=== PATIENT | female | born 1995 | race American Indian/Alaskan Native ===

== ENCOUNTER 2019-06-12 15:57 | Emergency (ER) | payer SELFPAY ==
[2019-06-12 16:39] VITALS: BP 119/73
--- NOTE | 2019-06-12 16:42 | Emergency Department Report ---
ED Rash HPI - HPI Chief Complaint: Skin Rash Stated Complaint: ECZEMA FLARE UP Time Seen by Provider: 06/12/19 16:37 Duration: 3 Days Location: Neck, Abdomen, Upper Extremities Rash Symptoms: Yes Itching, No Facial Swelling, No Tongue/Oral Swelling, No Breathing Difficulties, No Choking Sensation, No Wheezing/Dyspnea, No Peeling, No Blistering, No Fever, No Lightheaded, No Malaise, No Myalgias Severity: moderate Other History: This is a 24-year-old female that presents to the ER with pruritic rash to neck, abdomen, and bilateral upper extremities for 2-3 days. Past medical history of eczema. Patient states she ran out of triamcinolone cream. Denies fever, chills, dyspnea, swelling, pus, or drainage. ED Review of Systems ROS: Stated complaint: ECZEMA FLARE UP Other details as noted in HPI Constitutional: denies: chills, fever Respiratory: denies: cough, shortness of breath, wheezing Cardiovascular: denies: chest pain, palpitations Gastrointestinal: denies: abdominal pain, nausea, diarrhea Skin: rash, pruritus. denies: lesions, change in color, change in hair/nails Neurological: denies: headache, weakness, paresthesias Psychiatric: denies: anxiety, depression ED Past Medical Hx - Past Medical History Previous Medical History?: No - Surgical History Past Surgical History?: No - Medications Home Medications: Home Medications Medication Instructions Recorded Confirmed Last Taken Type Prednisone [predniSONE 10 mg 10 mg PO .TAPER #1 tab.ds.pk 06/12/19 Unknown Rx (6-Day Pack, 21 Tabs)] Triamcinolone Acetonide 60 gm TP BID #1 oint...g. 06/12/19 Unknown Rx [Triamcinolone Acetonide Oint 0.5%] Rash Exam - Exam General: Vital signs noted. No distress. Alert and acting appropriately. HEENT: No Periorbital Edema, No Conjuctival Injection, No Chemosis, No Perioral Edema, No Tongue Edema, No Uvular Edema, No Compromised Airway, No Drooling Lungs: Yes Good Air Exchange (Normal Breath Sounds), No Wheezes, No Ronchi, No Stridor, No Cough, No Labored Respirations, No Retractions, No Use of Accessory Muscles, No Other Abnormal Lung Sounds Heart: Yes Regular, No Murmur Skin: Yes Encrustations (to lumbar sacral, posterior neck, and extensor bilateral arms), No Urticarial Rash, No Maculopapular Rash, No Morbilliform rash, No Bulla(e), No Excoriations, No Weeping, No Tenderness, No Erythema, No Edema Other: Positive: Abdomen Normal, Musculoskeletal Normal ED Medical Decision Making - Medical Decision Making This is a 24-year-old -[place] female who presents with eczema flare. Patient was examined by me. Encrustations to lumbar sacral, posterior neck, and extensor bilateral arms that appear to be atopic dermatitis. Vitals are stable and in no acute distress. No labs ordered. Start medrol and triamcinolone cream. Discharged home in stable condition. Discussed prevention options. F/U with PCP. Critical care attestation.: If time is entered above; I have spent that time in minutes in the direct care of this critically ill patient, excluding procedure time. ED Disposition Clinical Impression: Pruritic rash Atopic dermatitis Qualifiers: Atopic dermatitis type: flexural Qualified Code(s): L20.89 - Other atopic dermatitis Disposition: DC- TO HOME OR SELFCARE Is pt being admited?: No Condition: Stable Instructions: Eczema (ED) Additional Instructions: Follow up with dermatology. Prescriptions: Prednisone [predniSONE 10 mg (6-Day Pack, 21 Tabs)] 10 mg PO .TAPER #1 tab.ds.pk Triamcinolone Acetonide [Triamcinolone Acetonide Oint 0.5%] 60 gm TP BID #1 oint...g. Referrals: [facility] [Provider Group] - 3-5 Days [facility] [Provider Group] - 3-5 Days [facility] [Outside] - 3-5 Days Forms: Work/School Release Form(ED) Time of Disposition: 16:41
== END 2019-06-12 17:58 | disposition home or self-care (01) ==
LOC: ED 15:57
DX: L20.89 Other atopic dermatitis (principal)
CPT/HCPCS: 99281

== ENCOUNTER 2020-01-21 19:56 | Emergency (ER) | payer SELFPAY ==
[2020-01-21 20:10] VITALS: BP 101/76
--- NOTE | 2020-01-21 20:36 | Emergency Department Report ---
Chief Complaint: Sore Throat Stated Complaint: UPPER BODY PAIN/SORETHROAT - HPI History of Present Illness: 24 y/o female comes in for sore throat and bodyaches times 2 days. No fever or chills. No nausea vomiting or diarrhea. LMP 01/14/20. - Exam Vital Signs: Vital Signs 01/21/20 20:08 Temperature 98.5 F Pulse Rate 94 H Respiratory 18 Rate Blood Pressure 101/76 O2 Sat by Pulse 100 Oximetry Physical Exam: AX3 no acute distress nontoxic in appearance Oromucosa is moist no tonsillar hypertrophy no exudate MSE screening note: Focused history and physical exam performed. Due to findings the following was ordered: 24 y/o female comes in for sore throat and bodyaches times 2 days. No fever or chills. No nausea vomiting or diarrhea. LMP 01/14/20. ED Disposition for MSE Disposition: Z MED SCREENING EXAM-LEFT Is pt being admited?: No Does the pt Need Aspirin: No Condition: Stable Additional Instructions: Take ibuprofen or Tylenol for pain management follow-up with your primary care provider Referrals: CANDICE GILLIAM MD [Staff Physician] - 3-5 Days [facility] [Provider Group] - 3-5 Days Forms: Work/School Release Form(ED)
== END 2020-01-21 20:55 | disposition left against medical advice (07) ==
LOC: ED 19:56
DX: J02.9 Acute pharyngitis, unspecified (principal); Z53.21 Procedure and treatment not carried out due to patient leaving prior to being seen by health care provider

== ENCOUNTER 2021-07-22 17:14 | Emergency (ER) | payer SELFPAY ==
[2021-07-22 20:42] VITALS: BP 122/76
--- NOTE | 2021-07-22 23:32 | Emergency Department Report ---
- General Chief Complaint: Headache Stated Complaint: BODYACHES/HEADACHE Source: patient Mode of arrival: Ambulatory Limitations: No Limitations - History of Present Illness Initial Comments: Patient is a 26-year-old -[place] female with a history of eczema who presented to the ED with nasal and sinus congestion, frontal sinus pressure and headache, persistent dry cough with diffuse body aches and pains for the last 3 days. Patient states that she has been taking [id number] medications with no relief. Patient denies dizziness, syncope, nausea and vomiting, diarrhea, dysuria, urinary frequency and urgency, abdominal pain, chest pain, shortness of breath, change in vision, sore throat or hearing loss. MD Complaint: cough, rhinorrhea, nasal congestion, sinus pain -: Sudden, days(s) (3) Severity: severe Severity scale (0 -10): 7 Quality: sharp, aching Consistency: constant Improves With: nothing Worsens With: nothing Context: sick contacts Associated Symptoms: denies other symptoms, myalgias, headache, rhinorrhea, nasal congestion, cough. denies: fever, chills, diaphoresis, sore throat, stiff neck, chest pain, shortness of breath, abdominal pain, nausea, vomiting, diarrhea, rash, confusion, right sweats, weight loss, epistaxis, hoarseness, ear pain Treatments Prior to Arrival: "cold medicine" - Related Data Previous Rx's Medication Instructions Recorded Last Taken Type Triamcinolone Acetonide 60 gm TP BID #1 oint...g. 06/12/19 Unknown Rx [Triamcinolone Acetonide Oint 0.5%] Azithromycin [Zithromax Z-MALLORY] 250 mg PO DAILY #6 tablet 07/22/21 Unknown Rx Brompheniramine/Pseudoephed/Dm 5 ml PO Q6H #118 ml 07/22/21 Unknown Rx [Bromfed Dm Cough Syrup] Cetirizine HCl [Zyrtec 10mg tab] 10 mg PO DAILY #30 tablet 07/22/21 Unknown Rx Ibuprofen [Motrin] 600 mg PO Q8H PRN #24 tablet 07/22/21 Unknown Rx Prednisone [predniSONE 10 mg 10 mg PO .TAPER #1 tab.ds.pk 07/22/21 Unknown Rx (6-Day Pack, 21 Tabs)] Allergies Allergy/AdvReac Type Severity Reaction Status Date / Time shellfish derived AdvReac Unknown Verified 07/22/21 20:41 ED Review of Systems ROS: Stated complaint: BODYACHES/HEADACHE Other details as noted in HPI Constitutional: denies: chills, fever Eyes: denies: eye pain, eye discharge, vision change ENT: congestion, other (Frontal sinus pressure and headache). denies: ear pain, throat pain Respiratory: cough. denies: shortness of breath, wheezing Cardiovascular: denies: chest pain, palpitations Endocrine: no symptoms reported Gastrointestinal: denies: abdominal pain, nausea, vomiting, diarrhea Genitourinary: denies: urgency, dysuria, discharge Musculoskeletal: denies: back pain, joint swelling, arthralgia Skin: denies: rash, lesions Neurological: headache. denies: weakness, paresthesias Psychiatric: denies: anxiety, depression Hematological/Lymphatic: denies: easy bleeding, easy bruising ED Past Medical Hx - Past Medical History Previous Medical History?: No Additional medical history: Eczema - Surgical History Past Surgical History?: No - Social History Smoking Status: Never Smoker Substance Use Type: None - Medications Home Medications: Home Medications Medication Instructions Recorded Confirmed Last Taken Type Triamcinolone Acetonide 60 gm TP BID #1 oint...g. 06/12/19 Unknown Rx [Triamcinolone Acetonide Oint 0.5%] Azithromycin [Zithromax Z-MALLORY] 250 mg PO DAILY #6 tablet 07/22/21 Unknown Rx Brompheniramine/Pseudoephed/Dm 5 ml PO Q6H #118 ml 07/22/21 Unknown Rx [Bromfed Dm Cough Syrup] Cetirizine HCl [Zyrtec 10mg tab] 10 mg PO DAILY #30 tablet 07/22/21 Unknown Rx Ibuprofen [Motrin] 600 mg PO Q8H PRN #24 tablet 07/22/21 Unknown Rx Prednisone [predniSONE 10 mg 10 mg PO .TAPER #1 tab.ds.pk 07/22/21 Unknown Rx (6-Day Pack, 21 Tabs)] ED Physical Exam - General Limitations: No Limitations General appearance: alert, in no apparent distress - Head Head exam: Present: atraumatic, normocephalic, normal inspection - Eye Eye exam: Present: normal appearance, PERRL, EOMI Pupils: Present: normal accommodation - ENT ENT exam: Present: normal orophraynx, mucous membranes moist, TM's normal bilaterally, normal external ear exam, other (Grossly congested nasal passages; palpable frontal sinus tenderness) - Neck Neck exam: Present: normal inspection, full ROM - Respiratory Respiratory exam: Present: normal lung sounds bilaterally. Absent: respiratory distress, wheezes, rales, rhonchi, chest wall tenderness, accessory muscle use, decreased breath sounds, other - Cardiovascular Cardiovascular Exam: Present: regular rate, normal rhythm, normal heart sounds. Absent: systolic murmur, diastolic murmur, rubs, gallop - GI/Abdominal GI/Abdominal exam: Present: soft, normal bowel sounds. Absent: tenderness, guarding, rebound, hyperactive bowel sounds, hypoactive bowel sounds, organomegaly, mass - Extremities Exam Extremities exam: Present: normal inspection, full ROM, normal capillary refill - Back Exam Back exam: Present: normal inspection, full ROM. Absent: tenderness, CVA tenderness (R), CVA tenderness (L), muscle spasm, paraspinal tenderness, vertebral tenderness - Neurological Exam Neurological exam: Present: alert, oriented X3, CN II-XII intact, normal gait, reflexes normal - Psychiatric Psychiatric exam: Present: normal affect, normal mood - Skin Skin exam: Present: warm, dry, intact, normal color. Absent: rash ED Course Vital Signs 07/22/21 20:41 Temperature 99.2 F Pulse Rate 95 H Respiratory 17 Rate Blood Pressure 122/76 O2 Sat by Pulse 100 Oximetry ED Medical Decision Making - Medical Decision Making This is a 26-year-old -[place] female with a history of eczema who presented to the ED with nasal and sinus congestion, frontal sinus pressure and headache, persistent dry cough with diffuse body aches and pains for the last 3 days. Patient states that she has been taking [id number] medications with no relief. In the ED, patient is alert and oriented x3 and is not in any distress. Based on the history and physical exam findings, patient was discharged home on medications and advised to follow-up with her primary care physician in 5 to 7 days for reevaluation. Patient was advised to return to the ED immediately if symptoms get worse. - Differential Diagnosis Sinusitis; URI; bronchitis; influenza; Critical care attestation.: If time is entered above; I have spent that time in minutes in the direct care of this critically ill patient, excluding procedure time. ED Disposition Clinical Impression: Acute upper respiratory infection, Acute bacterial sinusitis Acute bronchitis Qualifiers: Bronchitis organism: other organism Qualified Code(s): J20.8 - Acute bronchitis due to other specified organisms Disposition: HOME / SELF CARE / HOMELESS Is pt being admited?: No Does the pt Need Aspirin: No Condition: Stable Instructions: Acute Bronchitis (ED), Sinusitis, Adult, [id number], Upper Respiratory Infection, Adult, [id number]-zb-Gief, Acute Bronchitis, Adult, Pfsv-ja-Whab Additional Instructions: Take medication with food, drink plenty of fluids and follow-up with your primary care physician in 7 to 10 days for reevaluation. Return to the ED immediately if symptoms get worse. Prescriptions: Brompheniramine/Pseudoephed/Dm [Bromfed Dm Cough Syrup] 5 ml PO Q6H #118 ml Ibuprofen [Motrin] 600 mg PO Q8H PRN #24 tablet PRN Reason: Pain Prednisone [predniSONE 10 mg (6-Day Pack, 21 Tabs)] 10 mg PO .TAPER #1 tab.ds.pk Azithromycin [Zithromax Z-MALLORY] 250 mg PO DAILY #6 tablet Cetirizine HCl [Zyrtec 10mg tab] 10 mg PO DAILY #30 tablet Referrals: [facility] [Provider Group] - 7-10 days Forms: Work/School Release Form(ED) Time of Disposition: 23:32 Print Language: INDONESIAN
== END 2021-07-23 00:30 | disposition home or self-care (01) ==
LOC: ED 17:14
DX: J06.9 Acute upper respiratory infection, unspecified (principal); J01.90 Acute sinusitis, unspecified; J20.9 Acute bronchitis, unspecified; Z91.013 Allergy to seafood
CPT/HCPCS: 99282

== ENCOUNTER 2022-03-23 23:35 | Emergency (ER) | payer MEDICAID ==
[2022-03-24 03:47] LABS: Blood Urea Nitrogen 11 mg/dL (7-17); Calcium 9.1 mg/dL (8.4-10.2); Hemolysis Index 3
[2022-03-24 03:48] LABS: BUN/Creatinine Ratio 22
--- NOTE | 2022-03-24 10:14 | Emergency Department Report ---
ED General Adult HPI - General Chief complaint: Vaginal Bleeding Stated complaint: BLEEDING FROM MEDICAL ABORATION Time Seen by Provider: 03/24/22 10:07 Source: patient Mode of arrival: Ambulatory Limitations: No Limitations - History of Present Illness Initial comments: 27-year-old female no significant past medical history reports to the ER with vaginal bleeding and passing of clots greater than half dollar size since yesterday afternoon. Patient does report that she had a medical on January 24 and was informed that she will have irregular periods. Patient denies any abdominal pain, no nausea, no vomiting, no diarrhea, no weakness, no he adaches, no dizziness. Patient reports that her bleeding has slowed up and she has since not passed any clots since she checked them last night in the ER.. Patient denies any shortness of breath and no chest pain at this time. No other acute symptoms reported. - Related Data Previous Rx's Medication Instructions Recorded Last Taken Type Triamcinolone Acetonide 60 gm TP BID #1 oint...g. 06/12/19 Unknown Rx [Triamcinolone Acetonide Oint 0.5%] Azithromycin [Zithromax Z-MALLORY] 250 mg PO DAILY #6 tablet 07/22/21 Unknown Rx Brompheniramine/Pseudoephed/Dm 5 ml PO Q6H #118 ml 07/22/21 Unknown Rx [Bromfed Dm Cough Syrup] Cetirizine HCl [Zyrtec 10mg tab] 10 mg PO DAILY #30 tablet 07/22/21 Unknown Rx Ibuprofen [Motrin] 600 mg PO Q8H PRN #24 tablet 07/22/21 Unknown Rx Prednisone [predniSONE 10 mg 10 mg PO .TAPER #1 tab.ds.pk 07/22/21 Unknown Rx (6-Day Pack, 21 Tabs)] Allergies Allergy/AdvReac Type Severity Reaction Status Date / Time shellfish derived AdvReac Unknown Verified 07/22/21 20:41 ED Review of Systems ROS: Stated complaint: BLEEDING FROM MEDICAL ABORATION Other details as noted in HPI Comment: All other systems reviewed and negative Genitourinary: other (Vaginal bleeding) ED Past Medical Hx - Past Medical History Previous Medical History?: Yes Additional medical history: Eczema - Surgical History Past Surgical History?: No - Social History Smoking Status: Never Smoker Substance Use Type: None - Medications Home Medications: Home Medications Medication Instructions Recorded Confirmed Last Taken Type Triamcinolone Acetonide 60 gm TP BID #1 oint...g. 06/12/19 Unknown Rx [Triamcinolone Acetonide Oint 0.5%] Azithromycin [Zithromax Z-MALLORY] 250 mg PO DAILY #6 tablet 07/22/21 Unknown Rx Brompheniramine/Pseudoephed/Dm 5 ml PO Q6H #118 ml 07/22/21 Unknown Rx [Bromfed Dm Cough Syrup] Cetirizine HCl [Zyrtec 10mg tab] 10 mg PO DAILY #30 tablet 07/22/21 Unknown Rx Ibuprofen [Motrin] 600 mg PO Q8H PRN #24 tablet 07/22/21 Unknown Rx Prednisone [predniSONE 10 mg 10 mg PO .TAPER #1 tab.ds.pk 07/22/21 Unknown Rx (6-Day Pack, 21 Tabs)] ED Physical Exam - General Limitations: No Limitations General appearance: alert, in no apparent distress - Head Head exam: Present: atraumatic, normocephalic - Eye Eye exam: Present: normal appearance - ENT ENT exam: Present: mucous membranes moist - Neck Neck exam: Present: normal inspection - Respiratory Respiratory exam: Present: normal lung sounds bilaterally. Absent: respiratory distress - Cardiovascular Cardiovascular Exam: Present: regular rate, normal rhythm. Absent: systolic murmur, diastolic murmur, rubs, gallop - GI/Abdominal GI/Abdominal exam: Present: soft, normal bowel sounds. Absent: distended, tenderness, guarding, rebound, rigid - Extremities Exam Extremities exam: Present: normal inspection - Back Exam Back exam: Present: normal inspection - Neurological Exam Neurological exam: Present: alert, oriented X3 - Psychiatric Psychiatric exam: Present: normal affect, normal mood - Skin Skin exam: Present: warm, dry, intact, normal color. Absent: rash ED Course Vital Signs 03/23/22 03/24/22 03/24/22 23:58 04:43 11:56 Temperature 98.1 F Pulse Rate 83 81 87 Respiratory 18 18 16 Rate Blood Pressure 122/72 Blood Pressure 120/87 114/70 [Right] O2 Sat by Pulse 100 100 100 Oximetry ED Medical Decision Making - Lab Data Result diagrams: 03/24/22 09:20 03/24/22 02:56 - Radiology Data Radiology results: report reviewed [facility] [address] [place] [address] Ultrasound Report Signed Patient: DANG PEREZ MR#: [id number] 9 : 1995 Acct:[id number] Age/Sex: 27 / F ADM Date: 03/23/22 Loc: ED Attending Dr: Ordering Physician: IMMANUEL CASANOVA NP Date of Service: 03/24/22 Procedure(s): US pelvic complete Accession Number(s): [id number] cc: IMMANUEL CASANOVA NP ULTRASOUND PELVIS INDICATION: vaginal exam. Pelvic pain. TECHNIQUE: Transabdominal and Transvaginal. Duplex Color Doppler used: Yes. COMPARISON: None available FINDINGS: Uterus: Present. Size: 8.2 x 4.7 x 6.5 cm. Endometrial complex: Abnormal and heterogeneous measuring 1.8 cm. Vascularity is increased. Mass lesions: None. Additional findings: None. Right Ovary -- Normal. Blood flow: Normal. Cyst or mass: None. Left Ovary-- Normal. Blood flow: Normal. Cyst or mass: None. Urinary Bladder: Normal. Free Fluid: None. Additional Findings: None. IMPRESSION: Abnormally thickened and heterogeneous endometrial complex with increased vascularity. Signer Name: Rajeev French MD Signed: 03/24/2022 10:55 AM Workstation Name: [id number] Transcribed By: ES Dictated By: Rajeev French MD Electronically Authenticated By: Rajeev French MD Signed Date/Time: 03/24/22 105 DD/ 105 TD/TT - Medical Decision Making 27-year-old female no significant past medical history reports to the ER with va ginal bleeding and passing of clots greater than half dollar size since yesterday afternoon. Patient does report that she had a medical on January 24 and was informed that she will have irregular periods. Patient denies any abdominal pain, no nausea, no vomiting, no diarrhea, no weakness, no headaches, no dizziness. Patient reports that her bleeding has slowed up and she has since not passed any clots since she checked them last night in the ER.. Patient denies any shortness of breath and no chest pain at this time. No other acute symptoms reported. Labs unremarkable. UA negative for any acute infection. Ultrasound transverse and pelvic IMPRESSION: Abnormally thickened and he terogeneous endometrial complex with increased vascularity. Patient still reports no vaginal bleeding or passing of clots while in ER. Patient stable for discharge home patient to follow-up outpatient resources with primary care as well as [facility] [employer] services. Patient agrees with plan of care and verbalized understanding. Patient informed if symptoms are to get worse to report back to the ER. Vital Signs 03/23/22 03/24/22 03/24/22 23:58 04:43 11:56 Temperature 98.1 F Pulse Rate 83 81 87 Respiratory 18 18 16 Rate Blood Pressure 122/72 Blood Pressure 120/87 114/70 [Right] O2 Sat by Pulse 100 100 100 Oximetry Lab Results 03/24/22 03/24/22 03/24/22 Range/Units 02:56 02:56 09:20 WBC 6.6 (4.5-11.0) K/mm3 RBC 3.87 (3.65-5.03) M/mm3 Hgb 12.6 (10.1-14.3) gm/dl Hct 36.0 (30.3-42.9) % MCV 93 (79-97) fl MCH 32 (28-32) pg MCHC 35 H (30-34) % RDW 12.5 L (13.2-15.2) % Plt Count 269 (140-440) K/mm3 Lymph % (Auto) 38.0 H (13.4-35.0) % Russell % (Auto) 7.0 (0.0-7.3) % Eos % (Auto) 4.3 (0.0-4.3) % Baso % (Auto) 1.1 (0.0-1.8) % Lymph # (Auto) 2.5 (1.2-5.4) K/mm3 Russell # (Auto) 0.5 (0.0-0.8) K/mm3 Eos # (Auto) 0.3 (0.0-0.4) K/mm3 Baso # (Auto) 0.1 (0.0-0.1) K/mm3 Seg Neutrophils % 49.6 (40.0-70.0) % Seg Neutrophils # 3.3 (1.8-7.7) K/mm3 Sodium 139 (137-145) mmol/L Potassium 4.1 (3.6-5.0) mmol/L Chloride 104.0 (98-107) mmol/L Carbon Dioxide 27 (22-30) mmol/L Anion Gap 12 mmol/L BUN 11 (7-17) mg/dL Creatinine 0.5 L (0.6-1.2) mg/dL Estimated GFR > 60 ml/min BUN/Creatinine Ratio 22 % Glucose 96 (65-100) mg/dL Calcium 9.1 (8.4-10.2) mg/dL HCG, Quant 7.97 H (0-4) mIU/mL Urine Color (Yellow) Urine Turbidity (Clear) Specific [place] (Man) (1.003-1.030) Ur Protein (Man) (Negative) mg/dL Ur Ketones (Man) (Negative) Ur Nitrite (Man) (Negative) Ur Reducing Substances Urine Bilirubin (Man) (Negative) Urine Ictotest Leukocyte Esterase (Man) (Negative) Urine WBC (Auto) (0.0-6.0) /HPF Urine RBC (Auto) (0.0-6.0) /HPF U Epithel Cells (Auto) (0-13.0) /HPF Urine Bacteria (Auto) (Negative) /HPF Urine RBC (Manual) (Negative) Urine Mucus /HPF 03/24/22 Range/Units 10:54 WBC (4.5-11.0) K/mm3 RBC (3.65-5.03) M/mm3 Hgb (10.1-14.3) gm/dl Hct (30.3-42.9) % MCV (79-97) fl MCH (28-32) pg MCHC (30-34) % RDW (13.2-15.2) % Plt Count (140-440) K/mm3 Lymph % (Auto) (13.4-35.0) % Russell % (Auto) (0.0-7.3) % Eos % (Auto) (0.0-4.3) % Baso % (Auto) (0.0-1.8) % Lymph # (Auto) (1.2-5.4) K/mm3 Russell # (Auto) (0.0-0.8) K/mm3 Eos # (Auto) (0.0-0.4) K/mm3 Baso # (Auto) (0.0-0.1) K/mm3 Seg Neutrophils % (40.0-70.0) % Seg Neutrophils # (1.8-7.7) K/mm3 Sodium (137-145) mmol/L Potassium (3.6-5.0) mmol/L Chloride (98-107) mmol/L Carbon Dioxide (22-30) mmol/L Anion Gap mmol/L BUN (7-17) mg/dL Creatinine (0.6-1.2) mg/dL Estimated GFR ml/min BUN/Creatinine Ratio % Glucose (65-100) mg/dL Calcium (8.4-10.2) mg/dL HCG, Quant (0-4) mIU/mL Urine Color Straw (Yellow) Urine Turbidity Clear (Clear) Specific [place] (Man) 1.015 (1.003-1.030) Ur Protein (Man) 1+ (Negative) mg/dL Ur Ketones (Man) Negative (Negative) Ur Nitrite (Man) Negative (Negative) Ur Reducing Substances Not Reportable Urine Bilirubin (Man) Negative (Negative) Urine Ictotest Not Reportable Leukocyte Esterase (Man) Negative (Negative) Urine WBC (Auto) 2.0 (0.0-6.0) /HPF Urine RBC (Auto) 1.0 (0.0-6.0) /HPF U Epithel Cells (Auto) 4.0 (0-13.0) /HPF Urine Bacteria (Auto) 1+ (Negative) /HPF Urine RBC (Manual) 3+ (Negative) Urine Mucus Few /HPF Critical care attestation.: If time is entered above; I have spent that time in minutes in the direct care of this critically ill patient, excluding procedure time. ED Disposition Clinical Impression: Vaginal bleeding Disposition: 01 HOME / SELF CARE / HOMELESS Is pt being admited?: No Condition: Stable Instructions: Abnormal Uterine Bleeding Referrals: CANDICE GILLIAM MD [Primary Care Provider] - 3-5 Days [facility] [Outside] - 3-5 Days [facility] [Outside] - 3-5 Days [facility] [Outside] - 3-5 Days FESTUS NG MD [Staff Physician] - 3-5 Days JOLEEN CARUSO MD [Staff Physician] - 3-5 Days
[2022-03-24 10:15] LABS: Basophils # (Auto) 0.1 K/mm3 (0.0-0.1); Basophils % (Auto) 1.1 % (0.0-1.8); Eosinophils # (Auto) 0.3 K/mm3 (0.0-0.4); Eosinophils % (Auto) 4.3 % (0.0-4.3); Hemoglobin 12.6 gm/dl (10.1-14.3); Lymphocytes # (Auto) 2.5 K/mm3 (1.2-5.4); Mean Corpuscular HGB Conc 35 % (30-34); Mean Corpuscular Volume 93 fl (79-97); Monocytes # (Auto) 0.5 K/mm3 (0.0-0.8); Platelet Count 269 K/mm3 (140-440); Red Blood Count 3.87 M/mm3 (3.65-5.03); Red Cell Distribution Width 12.5 % (13.2-15.2)
--- NOTE | 2022-03-24 10:59 | Ultrasound Report ---
ULTRASOUND PELVIS INDICATION: vaginal exam. Pelvic pain. TECHNIQUE: Transabdominal and Transvaginal. Duplex Color Doppler used: Yes. COMPARISON: None available FINDINGS: Uterus: Present. Size: 8.2 x 4.7 x 6.5 cm. Endometrial complex: Abnormal and heterogeneous measuring 1.8 cm. Vascularity is increased. Mass lesions: None. Additional findings: None. Right Ovary -- Normal. Blood flow: Normal. Cyst or mass: None. Left Ovary-- Normal. Blood flow: Normal. Cyst or mass: None. Urinary Bladder: Normal. Free Fluid: None. Additional Findings: None. IMPRESSION: Abnormally thickened and heterogeneous endometrial complex with increased vascularity. Signer Name: Rajeev French MD Signed: 03/24/2022 10:55 AM Workstation Name: [id number]
[2022-03-24 11:18] LABS: Bacteria,Urine 1+ /HPF (Negative); Mucus,Urine FEW /HPF
[2022-03-24 11:30] LABS: Color,Urine Straw (Yellow)
[2022-03-24 11:57] VITALS: BP 114/70
== END 2022-03-24 11:57 | disposition home or self-care (01) ==
LOC: ED 23:35
DX: N93.9 Abnormal uterine and vaginal bleeding, unspecified (principal); Z91.013 Allergy to seafood
CPT/HCPCS: 36415; 76830; 76856; 80048; 81001; 84702; 85025; 99284